=== PATIENT | female | born 1970 | race Two or more races ===

== ENCOUNTER 2019-01-19 12:37 | Day surgery (SDC) | payer OTHER ==
[~2019-01-19] VITALS: Ht 154.9 cm; Wt 47.6 kg
[2019-01-19] VITALS (16 sets, daily range): BP systolic 118–162; BP diastolic 56–96
--- NOTE | 2019-01-19 07:39 | Operative Note - PDOC ---
Operative Note Operative Note Pre-op Diagnosis: left painful tibia nail Procedure: see op report Post-op Diagnosis: same as pre-op plus Operative Findings: consistent w/pre-op dx studies Anesthesia: MAC Specimen: none Complications: none Condition: stable Estimated Blood Loss: none Implant(s) used?: No David Guevara MD Jan 19, 2019 07:39
--- NOTE | 2019-01-19 07:39 | Pre-Procedure Note/Attestation ---
Pre-Procedure Note/Attestation Complete Prior to Procedure Planned Procedure: right Procedure Narrative: removal tibial nail Indications for Procedure Pre-Operative Diagnosis: left painful tibia nail Attestation I attest that I discussed the nature of the procedure; its benefits; risks and complications; and alternatives (and the risks and benefits of such alternatives ), prior to the procedure, with the patient (or the patient's legal food service sales representatives). I attest that, if there was a reasonable possibility of needing a blood transfusion, the patient (or the patient's legal food service sales representatives) was given the [facility] standardized written summary, pursuant to the [employer] [place] [employer] Blood Safety Act ([place] Health and Safety Code # 1645, as amended). I attest that I re-evaluated the patient just prior to the surgery and that there has been no change in the patient's H&P, except as documented below: David Guevara MD Jan 19, 2019 07:39
[~2019-01-19 12:37] MED LIST: D5 1/2NS 1,000 ML IV SCH; HYDROcodone/Acetamin 5/325 tab ORAL PRN; HYDROmorphone 1mg/ml Carpuject SUBQ PRN; Tylenol #3 tab (300mg/30mg) ORAL PRN; ceFAZolin 1gm IVPB IVPB ONE; celeBREX 200mg Cap **SURGERY PATIENTS ONLY ORAL ONE; oxyCONTIN 20mg tab ORAL ONE
[2019-01-19] MEDS ORDERED: LR 1000ml 1,000 ML IVLG SCH (13:27)
[2019-01-19] MEDS ORDERED: DiphenhydrAMINE 50mg/ml Inj IVP PRN (13:30)
[2019-01-19] MEDS ORDERED: fentaNYL 100 mcg/2 mL IV PRN (13:30)
[2019-01-19] MEDS ORDERED: Atropine Sulfate 0.4mg/ml inj IVP PRN (13:30)
[2019-01-19] MEDS ORDERED: Labetalol 5mg/ml 20ml vial IV PRN (13:30)
[2019-01-19] MEDS ORDERED: Ketorolac 30mg Inj IV PRN ×2 (13:30)
[2019-01-19] MEDS ORDERED: Acetaminophen (Non formulary) 100 ML IV ONE (13:30)
[2019-01-19] MEDS ORDERED: LORazepam Inj 2mg/ml 1ml IV PRN (13:30)
[2019-01-19] MEDS ORDERED: oxyCODONE HCL/Acetaminophen 5/325mg ORAL PRN (13:30)
[2019-01-19] MEDS ORDERED: Meperidine 50mg/ml Inj(FOR RIGORS ONLY) IVP PRN (13:30)
[2019-01-19] MEDS ORDERED: Midazolam 2mg/2ml Inj IVP PRN (13:30)
[2019-01-19] MEDS ORDERED: HYDROcodone/Acetamin 7.5/325 tab ORAL PRN (13:30)
[2019-01-19] MEDS ORDERED: Metoclopramide 10mg/2ml Inj IVP PRN (13:30)
[2019-01-19] MEDS ORDERED: HYDROcodone/Acetamin 5/325 tab ORAL PRN (13:30)
[2019-01-19] MEDS ORDERED: Hydromorphone 0.5mg/0.5ml inj IVP PRN (13:30)
--- NOTE | 2019-01-19 13:31 | Anethesia Preoperative Eval ---
Anesthesia Pre-op PMH/ROS General Date of Evaluation: Jan 19, 2019 Time of Evaluation: 14:37 Anesthesiologist: Frantz ASA Score: ASA 3 Mallampati Score Class I : Soft palate, uvula, fauces, pillars visible Class II: Soft palate, uvula, fauces visible Class III: Soft palate, base of uvula visible Class IV: Only hard plate visible Mallampati Classification: Class II Surgeon: Ismael Diagnosis: R Tibial Pain Surgical Procedure: Removal R Tibial Nail Anesthesia History: none Family History: no anesthesia problems Allergies: Coded Allergies: No Known Allergies (Unverified , 01/18/19) Medications: see eMAR Patient NPO?: Yes Past Medical History Gastrointestinal/Genitourinary: Reports: GERD Endocrine: Reports: DM PSxH Narrative: R Leg SX, TL Anesthesia Pre-op Phys. Exam Physician Exam Last Vital Signs Date Time Temp Pulse Resp B/P (MAP) Pulse Ox O2 Delivery O2 Flow Rate FiO2 01/19/19 13:17 Room Air 01/19/19 13:10 97.0 67 18 118/65 99 Constitutional: NAD Neurologic: CN 2-12 intact Cardiovascular: RRR Respiratory: CTA Gastrointestinal: S/NT/ND Airway Exam Mallampati Score: Class II MO: full ROM: full Teeth: missing, intact Anesthesia Pre-op A/P Risk Assessment & Plan Assessment: ASA 3 Plan: GA, SED Status Change Before Surgery: No Pre-Antibiotics Dru Gram Ancef IV Given Within 1 Hr of Incision: Yes Time Given: 14:56 Jere Landry MD Jan 19, 2019 13:31
[2019-01-19] MEDS ORDERED: oxyCONTIN 20mg tab ORAL ONE (13:53)
[2019-01-19] MEDS ORDERED: celeBREX 200mg Cap **SURGERY PATIENTS ONLY ORAL ONE (13:53)
[2019-01-19] MEDS ORDERED: METFORMIN HCL1000 M1 ORAL (14:00)
[2019-01-19] MEDS ORDERED: HUMALOG 75/255 UNIT1 SUBQ (14:00)
[2019-01-19] MEDS ORDERED: Propofol 200mg/20ml IV ONE ×2 (14:30→14:40)
[2019-01-19] MEDS ORDERED: Sterile Water Irrig 1000ml IRRIG ONE (14:30)
[2019-01-19] MEDS ORDERED: LR 1000ml ONE (14:30)
[2019-01-19] MEDS ORDERED: Lidocaine 1% MPF 10mg/ml 5ml ONE ×2 (14:40→14:41)
[2019-01-19] MEDS ORDERED: Sodium Chloride 10ml vial INJ ONE (14:41)
[2019-01-19] MEDS ORDERED: NeoSporin Gu Irrig 1ml Amp IRRIG ONE (14:42)
[2019-01-19] MEDS ORDERED: Midazolam 2mg/2ml Inj ONE (14:42)
[2019-01-19] MEDS ORDERED: Bupivacaine 0.25% Inj 30ml INJ ONE (14:42)
[2019-01-19] MEDS ORDERED: Bupivacaine w/Epi 0.5% 30ml Vial INJ ONE (14:42)
[2019-01-19] MEDS ORDERED: Bacitracin 50000 Units Vial ONE (14:42)
[2019-01-19] MEDS ORDERED: fentaNYL 100 mcg/2 mL ONE (14:42)
[2019-01-19] MEDS ORDERED: NS Irrig 1000ml IRRIG ONE (15:35)
--- NOTE | 2019-01-19 16:26 | Immediate Post-Op Evaluation ---
Immediate Post-Op Evalulation Immediate Post-Op Evalulation Procedure: Remove R Tibia Nail Date of Evaluation: Jan 19, 2019 Time of Evaluation: 16:38 IV Fluids: 700 LR Blood Products: 0 Estimated Blood Loss: 25 Urinary Output: 0 Blood Pressure Systolic: 154 Blood Pressure Diastolic: 87 Pulse Rate: 54 Respiratory Rate: 16 O2 Sat by Pulse Oximetry: 100 Temperature (Fahrenheit): 97.3 Pain Score (1-10): 2 Nausea: No Vomiting: No Complications 0 Patient Status: awake, reacts, patent, none Hydration Status: adequate Dru Gram Ancef IV Given Within 1 Hr of Incision: Yes Time Given: 14:56 Jere Landry MD Jan 19, 2019 16:26
--- NOTE | 2019-01-19 16:30 | 48 Hour Post Anesthesia Eval ---
Post Anesthesia Evaluation Procedure: Remove R Tibia Nail Date of Evaluation: Jan 19, 2019 Time of Evaluation: 18:55 Blood Pressure Systolic: 134 0: 76 Pulse Rate: 63 Respiratory Rate: 18 Temperature (Fahrenheit): 98.2 O2 Sat by Pulse Oximetry: 99 Airway: patent Nausea: No Vomiting: No Pain Intensity: 2 Hydration Status: adequate Cardiopulmonary Status: Stable Mental Status/LOC: patient returned to baseline Follow-up Care/Observations: 0 Post-Anesthesia Complications: 0 Follow-up care needed: ready to discharge Jere Landry MD Jan 19, 2019 16:30
--- NOTE | 2019-01-19 19:00 | Operative Note - Dictated ---
DATE OF OPERATION: 01/19/2019 PREOPERATIVE DIAGNOSES: 1. Status post ORIF right tibial shaft fracture. 2. Right painful tibial nail. POSTOPERATIVE DIAGNOSES: 1. Status post ORIF right tibial shaft fracture. 2. Right painful tibial nail. PROCEDURE: Removal of right tibial nail through a separate incision. SURGEON: David Guevara M.D. ANESTHESIA: MAC. INDICATION FOR PROCEDURE: The patient is a pleasant female who has underwent open reduction and internal fixation right tibial shaft fracture. Fracture had healed. She still had some pain along the hardware. Therefore, she elected to undergo removal of the hardware. Risks, limitations, expectations, and complications of procedure were discussed in detail. All questions addressed. DESCRIPTION OF PROCEDURE: After informed consent was obtained and the patient was brought to the operating room, the patient was placed under general anesthesia. Left leg was prepped and draped in a sterile manner. Time-out was performed. Esmarch used to exsanguinate the extremity. A lateral skin incision was then made. A distal screw was found and removed. Once that was done, medial incision was made to find the proximal locking screw. Once it was found, attention was turned towards finding the entrance point of the nail. The previous skin incision marked out interval just medial to the border of the patella was performed. Blunt dissection down to the intercondylar notch was performed. Using fluoroscopy, the proximal aspect of the nail was identified. The extractor was then placed. Once this was done, the proximal locking screws were removed along with the nail. Wound was copiously irrigated. Skin was closed with #1 Vicryl suture, 2-0 Vicryl suture, 3-0 Monocryl sutures. Compression dressing was applied. The patient was awoken and taken to recovery room with stable vital signs. ESTIMATED BLOOD LOSS: None. COMPLICATIONS: None. SPECIMENS: None. EXPLANTS: Include 1 tibial nail, 2 locking screws. David Guevara M.D. DR: GARRETT JOB#: [id number] CC:
== END 2019-01-19 18:50 | disposition home or self-care (01) ==
LOC: SUR 12:37
DX: T85.848A Pain due to other internal prosthetic devices, implants and grafts, initial encounter (principal); E11.9 Type 2 diabetes mellitus without complications; K21.9 Gastro-esophageal reflux disease without esophagitis; X58.XXXA Exposure to other specified factors, initial encounter; Y92.9 Unspecified place or not applicable
CPT/HCPCS: 20680; 76000; 81025; 82962; J0690; J1170; J2175; J2250; J2405; J2704; J2765; J3010; 94003; 94150